=== PATIENT | female | born 1985 | race Hispanic/Latino ===

== ENCOUNTER 2016-10-10 01:27 | Emergency (ER) | payer BC ==
[~2016-10-10] VITALS: Ht 170.2 cm; Wt 75.3 kg
[~2016-10-10 01:27] MED LIST: ANTI-NAUSEA GI1 EACH PO; IBUPROFEN800 MG PO; ZANTAC150 MG PO; ZOFRAN ODT4 MG PO; ZOFRAN4 MG PO
[2016-10-10 02:41] LABS: HEMATOCRIT 39.7 % (36.0-46.0); MCH 29.4 PG (29.0-34.0); MCHC 34.5 G/DL (30.0-36.0); MCV 85.2 FL (83-99); MEAN PLAT.VOLUME 10.4 uM^3 (9.5-12.4); PLATELET COUNT 207 K/uL (156-360); RBC DIS.WIDTH-CV 13.4 % (11.8-14.6); RED BLOOD COUNT 4.66 M/uL (3.80-5.20)
[2016-10-10 02:50] LABS: CHLORIDE 106 mEq/L (99-109); POTASSIUM 3.4 mEq/L (3.7-5.4); SODIUM 139 mEq/L (136-147)
[2016-10-10 02:52] LABS: GLUCOSE 94 mg/dL (70-99)
[2016-10-10 02:53] LABS: ANION GAP 7 MEQ/L (2-14)
[2016-10-10 02:54] LABS: TOTAL BILIRUBIN 0.4 mg/dL (0.0-1.0)
[2016-10-10 02:55] LABS: ALKALINE PHOSPHATASE 45 IU/L (3-129)
[2016-10-10 02:56] LABS: GFR ESTIMATE (CALCULATED) > 59 mL/min/
[2016-10-10 02:57] LABS: UREA NITROGEN (BUN) 15 mg/dL (9-23)
[2016-10-10 02:59] LABS: LIPASE 45 U/L (1.0-51.0)
[2016-10-10 03:07] LABS: QUANTITATIVE HCG < 4.0 MIU/ML
[2016-10-10 05:17] LABS: COLOR STRAW ((YELLOW)); LEUKOCYTES NEGATIVE; NITRITE NEGATIVE
[2016-10-10 05:18] LABS: ADD MIUA? NO; BILIRUBIN NEGATIVE; BLOOD NEGATIVE; GLUCOSE (STRIP) NEGATIVE; KETONES NEGATIVE; PROTEIN (STRIP) NEGATIVE; UCUL ADDED? NO; UROBILINOGEN 0.2 MG/DL (0.2-1.0)
[2016-10-10] MEDS ORDERED: NAPROSYN500 MG PO (05:34)
[2016-10-10 06:00] VITALS: BP 110/58
== END 2016-10-10 06:00 | disposition home or self-care (01) ==
LOC: EME 01:27
PROVIDERS: Emergency Medicine
DX: N83.12 Corpus luteum cyst of left ovary (principal)
CPT/HCPCS: 74177; 80053; 81003; 83690; 84702; 85027; 93005; 99281; 99284; J2270; J2405; J7030

== ENCOUNTER 2017-04-14 06:48 | Emergency (ER) | payer BC ==
[~2017-04-14] VITALS: Ht 170.2 cm; Wt 75.0 kg
[~2017-04-14 06:48] MED LIST changes: +NAPROSYN500 MG PO
[2017-04-14] MEDS ORDERED: MEDROL DOSEPAK4 MG PO (07:02)
[2017-04-14] MEDS ORDERED: ATARAX,VISTARIL25 MG PO (07:02)
[2017-04-14] MEDS ORDERED: PEPCID20 MG PO (07:02)
[2017-04-14 08:05] VITALS: BP 102/69
== END 2017-04-14 08:06 | disposition home or self-care (01) ==
LOC: EME 06:48
DX: L25.9 Unspecified contact dermatitis, unspecified cause (principal)
CPT/HCPCS: 99281; 99284; J2930; S0028